=== PATIENT | female | born 1990 | race Caucasian/White ===

== ENCOUNTER 2016-06-03 18:34 | Emergency (ER) | payer OTHER, MEDICAID ==
[2016-06-03] MEDS ORDERED: OXYCODONE/APAP 5/325 TAB PO ONE (21:48)
[2016-06-03] MEDS ORDERED: IBUPROFEN 200 MG TAB PO ONE (21:48)
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
[2016-06-03] MEDS ORDERED: SKIN ADHESIVE (DERMABOND) 1 EACH TP ONE (22:09)
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
[2016-06-03] MEDS ORDERED: OXYCODONE/APAP 5/325MG PREPACK#4 BTL TAKEHOME ONE (23:35)
[2016-06-04 00:04] VITALS: BP 125/88; PULSE 69; RESP 20; TEMP 98.2; O2SAT 99
== END 2016-06-04 00:04 | disposition home or self-care (01) ==
PROC: 0HQ3XZZ Repair Left Ear Skin, External Approach (ICD-10-PCS; principal; 2016-06-03)
DX: S01.312A Laceration without foreign body of left ear, initial encounter (principal); S16.1XXA Strain of muscle, fascia and tendon at neck level, initial encounter; F17.200 Nicotine dependence, unspecified, uncomplicated; W25.XXXA Contact with sharp glass, initial encounter; Y92.410 Unspecified street and highway as the place of occurrence of the external cause; Y93.89 Activity, other specified